=== PATIENT | male | born 1995 | race Caucasian/White ===

== ENCOUNTER 2016-11-16 07:33 | Emergency (ER) | payer MEDICAID ==
[~2016-11-16] VITALS: Ht 175.3 cm; Wt 96.7 kg
[2016-11-16] MEDS ORDERED: SODIUM CHLORIDE FLUSH 10ML SYR IVF ONE (08:30)
[2016-11-16] MEDS ORDERED: DIPHENHYDRAMINE 50 MG/ML, 1ML IVPush ONE (08:30)
[2016-11-16] MEDS ORDERED: PROCHLORPERAZINE 5 MG/ML, 2ML IVPush ONE (08:30)
[2016-11-16] MEDS ORDERED: SODIUM CHLORIDE 0.9% 1,000ML IVBOLUS ONE (08:30)
[2016-11-16] MEDS ORDERED: DIPHENHYDRAMINE 50 MG/ML, 1ML ONE (08:56)
[2016-11-16] MEDS ORDERED: PROCHLORPERAZINE 5 MG/ML, 2ML ONE (08:57)
[2016-11-16 08:59] LABS: BLOOD UREA NITROGEN 19 mg/dL (7-18)
[2016-11-16 09:04] LABS: ASPARTATE AMINO TRANSFERASE 21 U/L (15-37)
[2016-11-16 10:33] VITALS: BP 100/51
== END 2016-11-16 10:44 | disposition home or self-care (01) ==
LOC: ED 08:52
DX: R51 Headache (principal)
CPT/HCPCS: 36415; 70450; 80053; 85025; 96361; 96374; 96375; 99285; J0780; J1200; J7030